=== PATIENT | male | born 1965 | race Caucasian/White ===

== ENCOUNTER → 2022-02-07 10:19 | Outpatient (BNVA) | payer OTHER, SELFPAY | PROVIDERS: Visit Provider Internal Medicine | DX: S46.911A Strain of unspecified muscle, fascia and tendon at shoulder and upper arm level, right arm, initial encounter (principal); X50.1XXA Overexertion from prolonged static or awkward postures, initial encounter | CPT/HCPCS: 73030; 99203 ==

== ENCOUNTER → 2022-02-18 11:39 | Outpatient (BNVA) | payer OTHER, SELFPAY | PROVIDERS: Visit Provider Physician Assistant Medical | DX: M24.811 Other specific joint derangements of right shoulder, not elsewhere classified (principal) | CPT/HCPCS: 99213 ==

== ENCOUNTER → 2022-03-04 11:56 | Outpatient (BNVA) | payer OTHER, SELFPAY | PROVIDERS: Visit Provider Physician Assistant Medical | DX: S49.91XA Unspecified injury of right shoulder and upper arm, initial encounter (principal); X50.1XXA Overexertion from prolonged static or awkward postures, initial encounter | CPT/HCPCS: 99213 ==

== ENCOUNTER → 2022-03-19 11:17 | Outpatient (BNVA) | payer OTHER, SELFPAY | PROVIDERS: PCP Internal Medicine; Visit Provider Physician Assistant | DX: S49.91XD Unspecified injury of right shoulder and upper arm, subsequent encounter (principal); X58.XXXD Exposure to other specified factors, subsequent encounter | CPT/HCPCS: 99213 ==

== ENCOUNTER 2022-03-21 12:49 | Outpatient (REF) | payer OTHER, SELFPAY ==
--- NOTE | ~2022-03-21 | MR_ITS ---
EXAMINATION: MR SHOULDER WITHOUT CONTRAST, RIGHT CLINICAL INFORMATION: Right shoulder pain following a lifting injury on 02/07/2022. Question internal derangement. Positive empty can test. COMPARISON: Right shoulder radiographs dated 02/07/2022. TECHNIQUE: MRI of the shoulder without contrast was performed on a high-field scanner. FINDINGS: ROTATOR CUFF: Full-thickness partial tearing involving the majority of the supraspinatus tendon measuring 2.3 x 2.9 cm (AP x ML) with retraction of the torn tendon fibers to the humeral head apex. There are posterior tendon fibers which remain intact. Subscapularis tendinosis with distal articular surface partial tearing measuring 2.4 cm in ML dimension. No muscle atrophy or fatty infiltration. BICEPS: Mild flattening of the proximal long head biceps tendon as it drapes over the lesser tuberosity consistent with focal longitudinal partial tearing. CORACOACROMIAL ARCH: The undersurface of the acromion is curved with small subacromial spurs. Mild acromioclavicular osteoarthritis. LABRUM/CAPSULE: No displaced labral tear. GLENOHUMERAL JOINT/MARROW: Mild articular cartilage thinning and signal heterogeneity with tiny marginal osteophytes. Small joint effusion. MR/MR shoulder RT wo con IMPRESSION: 1. Full-thickness partial tearing involving the anterior supraspinatus tendon measuring 2.3 x 2.9 cm with retraction of the tendon fibers to the humeral head apex. Subscapularis tendinosis with distal articular surface partial tearing measuring 2.4 cm in ML dimension. 2. Flattening/longitudinal partial tearing of the proximal long head biceps tendon as it drapes over the lesser tuberosity. 3. Mild acromioclavicular osteoarthritis with small subacromial spurs. 4. Mild glenohumeral osteoarthritis with a small joint effusion.
== END 2022-03-21 12:50 | disposition home or self-care (01) ==
LOC: HO.MRI 12:49
PROVIDERS: PCP Internal Medicine; Visit Provider Internal Medicine
DX: M25.511 Pain in right shoulder (principal)
CPT/HCPCS: 73221

== ENCOUNTER → 2022-03-26 09:58 | Outpatient (BNVA) | payer OTHER, SELFPAY | PROVIDERS: PCP Internal Medicine; Visit Provider Physician Assistant | DX: M75.101 Unspecified rotator cuff tear or rupture of right shoulder, not specified as traumatic (principal) | CPT/HCPCS: 99213 ==

== ENCOUNTER → 2023-10-14 10:25 | Outpatient (BNVA) | payer OTHER, SELFPAY | PROVIDERS: PCP Internal Medicine; Visit Provider Physician Assistant | DX: S46.912A Strain of unspecified muscle, fascia and tendon at shoulder and upper arm level, left arm, initial encounter (principal); X50.0XXA Overexertion from strenuous movement or load, initial encounter | CPT/HCPCS: 99204 ==

== ENCOUNTER → 2023-10-28 09:56 | Outpatient (BNVA) | payer OTHER, SELFPAY | PROVIDERS: PCP Internal Medicine; Visit Provider Physician Assistant | DX: M25.512 Pain in left shoulder (principal) | CPT/HCPCS: 99213 ==